=== PATIENT | male | born 1980 | race Caucasian/White ===

== ENCOUNTER 2016-12-10 20:45 | Outpatient (CLI) | payer BC ==
[~2016-12-10 20:45] MED LIST: CITA10TA70 PO; NAPR-243 PO
== END 2016-12-11 06:30 | disposition home or self-care (01) ==
LOC: SLEEP 20:45
PROVIDERS: ATTEND Nurse Practitioner Community Health
DX: G47.33 Obstructive sleep apnea (adult) (pediatric) (principal)
CPT/HCPCS: 95811

== ENCOUNTER 2022-09-27 13:22 | Emergency (ER) | payer OTHER ==
[~2022-09-27] VITALS: Ht 172 cm; Wt 136.1 kg
[2022-09-27 14:03] LABS: BASOPHILS # (AUTO) 0.1 10^3/uL (0.0-0.1); BASOPHILS % (AUTO) 0 % (0-10); EOSINOPHILS # (AUTO) 0.2 10^3/uL (0.0-0.3); EOSINOPHILS % (AUTO) 1 % (0-10); HEMATOCRIT 41 % (40-54); HEMOGLOBIN 14.5 g/dL (13.3-17.7); LYMPHOCYTES # (AUTO) 2.2 10^3/uL (1.0-4.0); LYMPHOCYTES % (AUTO) 19 % (12-44); MEAN CORPUSCULAR HEMOGLOBIN 32 pg (25-34); MEAN CORPUSCULAR HGB CONC 35 g/dL (32-36); MEAN CORPUSCULAR VOLUME 90 fL (80-99); MEAN PLATELET VOLUME 9.4 fL (9.0-12.2); MONOCYTES # (AUTO) 0.9 10^3/uL (0.0-1.0); MONOCYTES % (AUTO) 8 % (0-12); NEUTROPHILS # (AUTO) 8.5 10^3/uL (1.8-7.8); NEUTROPHILS % (AUTO) 72 % (42-75); PLATELET COUNT 282 10^3/uL (130-400); WHITE BLOOD COUNT 11.8 10^3/uL (4.3-11.0)
[2022-09-27 14:07] LABS: ALBUMIN 4.1 GM/DL (3.2-4.5)
[2022-09-27 14:08] LABS: POTASSIUM 3.4 MMOL/L (3.6-5.0)
[2022-09-27 14:09] LABS: CALCIUM 8.9 MG/DL (8.5-10.1)
[2022-09-27 14:10] LABS: TOTAL PROTEIN 7.3 GM/DL (6.4-8.2)
[2022-09-27 14:12] LABS: BILIRUBIN,TOTAL 0.5 MG/DL (0.1-1.0)
[2022-09-27 14:13] LABS: CREATININE SERUM 1.15 MG/DL (0.60-1.30)
--- NOTE | 2022-09-27 14:17 | ED GI ---
General Chief Complaint: Back Problems Stated Complaint: LOWER BACK PAIN | POSSIBLE KIDNEY STONE Nursing Triage Note: PT AMB TO [facility] 4 WITH C/O L FLANK PAIN SINCE 0200 THIS AM. PT THINKS ITS POSS A KIDNEY STONE. PT HAS HX OF KIDNEY STONES IN THE PAST Source of Information: Patient Exam Limitations: No Limitations (NOEMI TRINH APRN) History of Present Illness Date Seen by Provider: Sep 27, 2022 Time Seen by Provider: 13:58 Initial Comments 42-year-old male presents to the ER with complaints of left flank pain that radiates around abdomen to groin. He states the pain started at 2:30 AM last night when he got up to go to the restroom. He denies history of kidney stone diagnosis, but states he has had similar symptoms in the past. He reports nausea, no vomiting. Denies fevers, dysuria, hematuria. Last bowel movement was last night at 2:30 AM, states it was kind of loose. Denies any past medical history, does not take any medications regularly. (NOEMI TRINH APRN) Allergies and Home Medications Allergies Coded Allergies: No Known Drug Allergies (Unverified , 01/03/13) Patient Home Medication List Home Medication List Reviewed: Yes (NOEMI TRINH APRN) Citalopram Hydrobromide (Celexa) 10 Mg Tablet, 10 MG PO DAILY, (Reported) Entered as Reported by: BLAISE MERLOS on 01/03/13 1004 Naproxen (Naprosyn) 500 Mg Tablet, 1 EACH PO TID PRN Prescribed by: ETHEL HUMPHREY on 01/03/13 1122 Sulfamethoxazole/Trimethoprim (Bactrim Ds Tablet) 1 Each Tablet, 1 EACH PO BID Prescribed by: Noemi Trinh on 09/27/22 1541 Tamsulosin HCl (Flomax) 0.4 Mg Cap, 0.4 MG PO DAILY Prescribed by: Noemi Trinh on 09/27/22 1541 Review of Systems Review of Systems Constitutional: see HPI (NOEMI TRINH APRN) Past Hucixkg-Ccfkhq-Qadkgv Hx Patient Social History Tobacco Use?: No Smoking Status: Former Smoker Substance use?: Yes Substance type: Marijuana Substance frequency: Daily Alcohol Use?: No Pt feels they are or have been: No (NOEMI TRINH APRN) Immunizations Up To Date Tetanus Booster (TDap): Unknown (NOEMI TRINH APRN) Seasonal Allergies Seasonal Allergies: No (NOEMI TRINH APRN) Past Medical History Surgery/Hospitalization HX: DENIES Depression (NOEMI TRINH APRN) Physical Exam Vital Signs Vital Signs - First Documented 09/27/22 13:32 Temp 35.4 Pulse 65 Resp 17 B/P (MAP) 148/105 (119) Pulse Ox 99 O2 Delivery Room Air (BRYANT DIAL MD) Vital Signs Capillary Refill : (NOEMI TRINH APRN) Height/Weight/BMI Height: 5'8" Weight: 265lbs. oz. 120.567362ut; 46.00 BMI Method:Stated General Appearance: WD/WN, no apparent distress Neck: supple, normal inspection Respiratory: lungs clear, normal breath sounds, no respiratory distress, no accessory muscle use Cardiovascular: regular rate, rhythm Gastrointestinal: normal bowel sounds, non tender, soft Extremities: normal range of motion, normal inspection Back: normal inspection, no CVA tenderness Neurologic/Psychiatric: alert, normal mood/affect Skin: normal color, warm/dry (NOEMI TRINH APRN) Progress/Results/Core Measures Results/Orders Lab Results Laboratory Tests Test 09/27/22 13:38 09/27/22 14:34 Range/Units White Blood Count 11.8 H 4.3-11.0 10^3/uL Red Blood Count 4.60 4.30-5.52 10^6/uL Hemoglobin 14.5 13.3-17.7 g/dL Hematocrit 41 40-54 % Mean Corpuscular Volume 90 80-99 fL Mean Corpuscular Hemoglobin 32 25-34 pg Mean Corpuscular Hemoglobin Concent 35 32-36 g/dL Red Cell Distribution Width 12.2 10.0-14.5 % Platelet Count 282 130-400 10^3/uL Mean Platelet Volume 9.4 9.0-12.2 fL Immature Granulocyte % (Auto) 0 % Neutrophils (%) (Auto) 72 42-75 % Lymphocytes (%) (Auto) 19 12-44 % Monocytes (%) (Auto) 8 0-12 % Eosinophils (%) (Auto) 1 0-10 % Basophils (%) (Auto) 0 0-10 % Neutrophils # (Auto) 8.5 H 1.8-7.8 10^3/uL Lymphocytes # (Auto) 2.2 1.0-4.0 10^3/uL Monocytes # (Auto) 0.9 0.0-1.0 10^3/uL Eosinophils # (Auto) 0.2 0.0-0.3 10^3/uL Basophils # (Auto) 0.1 0.0-0.1 10^3/uL Immature Granulocyte # (Auto) 0.0 0.0-0.1 10^3/uL Sodium Level 138 135-145 MMOL/L Potassium Level 3.4 L 3.6-5.0 MMOL/L Chloride Level 104 98-107 MMOL/L Carbon Dioxide Level 25 21-32 MMOL/L Anion Gap 9 5-14 MMOL/L Blood Urea Nitrogen 15 7-18 MG/DL Creatinine 1.15 0.60-1.30 MG/DL Estimat Glomerular Filtration Rate 80 BUN/Creatinine Ratio 13 Glucose Level 86 70-105 MG/DL Calcium Level 8.9 8.5-10.1 MG/DL Corrected Calcium 8.8 8.5-10.1 MG/DL Total Bilirubin 0.5 0.1-1.0 MG/DL Aspartate Amino Transf (AST/SGOT) 32 5-34 U/L Alanine Aminotransferase (ALT/SGPT) 52 0-55 U/L Alkaline Phosphatase 74 40-136 U/L Total Protein 7.3 6.4-8.2 GM/DL Albumin 4.1 3.2-4.5 GM/DL Urine Color YELLOW Urine Clarity CLEAR Urine pH 6.0 5-9 Urine Specific [place] 1.020 1.016-1.022 Urine Protein NEGATIVE NEGATIVE Urine Glucose (UA) NEGATIVE NEGATIVE Urine Ketones NEGATIVE NEGATIVE Urine Nitrite NEGATIVE NEGATIVE Urine Bilirubin NEGATIVE NEGATIVE Urine Urobilinogen 0.2 < = 1.0 MG/DL Urine Leukocyte Esterase NEGATIVE NEGATIVE Urine RBC (Auto) 3+ H NEGATIVE Urine RBC 25-50 H /HPF Urine WBC RARE /HPF Urine Squamous Epithelial Cells RARE /HPF Urine Crystals NONE /LPF Urine Bacteria TRACE /HPF Urine Casts NONE /LPF Urine Mucus SMALL H /LPF Urine Culture Indicated NO (BRYANT DIAL MD) Vital Signs/I&O 09/27/22 09/27/22 13:32 16:00 Temp 35.4 35.4 Pulse 65 68 Resp 17 17 B/P (MAP) 148/105 (119) 158/66 Pulse Ox 99 96 O2 Delivery Room Air Room Air (BRYANT DIAL MD) Blood Pressure Mean: 119 Progress Progress Note : Progress Note Patient seen and evaluated, resting comfortably in bed, no acute distress. Based on exam and symptoms, differential diagnosis includes but is not limited to nephrolithiasis, pyelonephritis, musculoskeletal pain. Work-up initiated including CBC, CMP, UA, CT abdomen pelvis. IV fluids, Toradol, Zofran ordered. 1530 Labs reviewed. CBC shows slightly elevated WBC 11.8. CMP shows slightly decreased potassium 3.4. Urinalysis shows 3+ RBCs, negative for infection. CT shows 0.5 cm stone in left mid ureter. It also shows hepatic stenosis. Oral potassium ordered. Results discussed with patient. Will order a KUB to have if patient were to return for the same stone. Will discharge with Flomax, Bactrim, and urinary strainer and specimen cup. I offered narcotic pain medicine for patient. He states he does not want a prescription for it and he will take ibuprofen instead. Discharge instructions and return precautions provided. (NOEMI TRINH APRN) Diagnostic Imaging Diagonstic Imaging: CT Plain Films/CT/US/NM/MRI: abdomen Comments [facility]. [place], [place] NAME: CAMPBELL VILCHIS [facility] REC#: [id number] PT STATUS: REG ER : 1980 PHYSICIAN: NOEMI TRINH APRN ADMIT DATE: 09/27/22/ER Signed Date of Exam:09/27/22 CT ABD/PELVIS WO(KIDNEY STONE) EXAMINATION: CT abdomen and pelvis without contrast. TECHNIQUE: Multiple contiguous axial images were obtained through the abdomen and pelvis without the use of intravenous contrast. All CT scans use one or more of the following dose optimizing techniques: automated exposure control, MA and/or KvP adjustment based on patient size and exam type or iterative reconstruction. HISTORY: Left flank pain COMPARISON: None available. FINDINGS: Lung bases: Bibasilar dependent atelectasis. Solid organs: There is diffuse decreased attenuation of the liver which can be seen with hepatic steatosis. The gallbladder is normal. There is no biliary ductal dilation. Pancreas is normal. Spleen is normal. Adrenal glands are normal. There is mild left hydronephrosis likely secondary to a 0.5 cm stump in the mid left ureter. Bowel: The stomach and small bowel are normal without obstruction. The colon is normal. The appendix is normal. Peritoneum: There is no intraperitoneal free fluid or free air. No suspicious lymphadenopathy. Vasculature: Normal without aneurysm. Musculoskeletal: Degenerative changes of the spine without suspicious osseous lesion or compression fracture. Pelvis: The prostate gland is normal. The urinary bladder is normal. IMPRESSION: 1. A 0.5 cm calculus within the mid left ureter resulting in mild left hydronephrosis. 2. Hepatic steatosis. Dictated by: Dictated on workstation # [id number] Dict: 09/27/22 1434 Trans: 09/27/22 1527 [id number] [id number] Interpreted by: WADE BOJORQUEZ DO Electronically signed by: WADE BOJORQUEZ DO 09/27/22 1527 Diagonstic Imaging: Xray Plain Films/CT/US/NM/MRI: abdomen Comments [facility] [place] NAME: DENGCAMPBELL [facility] REC#: [id number] PT STATUS: DEP ER : 1980 PHYSICIAN: NOEMI TRINH APRN ADMIT DATE: 09/27/22/ER Signed Date of Exam:09/27/22 ABDOMEN/KUB 1VIEW INDICATION: Pain. COMPARISON: Exam correlated with CT abdomen and pelvis. FINDINGS: 4 mm calculus in the left ureter projects at the superior margin of the lateral aspect of the left L4 lumbar transverse process, unchanged from CT. No additional radiopaque stone. No bowel obstruction. There are right pelvic phleboliths noted incidentally. IMPRESSION: 4 mm left ureteral stone at the level of the fourth lumbar transverse process, unchanged when correlated with earlier CT. Dictated by: Dictated on workstation # [id number] Dict: 09/27/22 1548 Trans: 09/27/22 1612 AS6 [id number] Interpreted by: KATHIE CARABALLO Electronically signed by: KATHIE CARABALLO 09/27/22 1612 (NOEMI TRINH APRN) Departure Impression Primary Impression: Nephrolithiasis Disposition: 01 HOME, SELF-CARE Condition: Stable Departure-Patient Inst. Decision time for Depature: 15:37 (NOEMI TRINH APRN) Referrals: [facility] (PCP/Family) Primary Care Physician Patient Instructions: Kidney stones in adults Add. Discharge Instructions: Take Flomax once a day 30 minutes after eating. Take at the same time each day. Take Bactrim twice a day for 5 days. You may take 800 mg of ibuprofen every 8 hours with food as needed for pain. You may also take 1000 mg of Tylenol every 8 hours as needed for pain. Strain your urine and collect the stone. The stone can be taken to a urologist for testing. Follow-up with a urologist of your choice. Below are urologists in [place]. [address], [place] [address], [place] [address] All discharge instructions reviewed with patient and/or family. Voiced understanding. Scripts Tamsulosin HCl (Flomax) 0.4 Mg Cap 0.4 MG PO DAILY for 14 Days, #14 CAP 0 Refills Prov: NOEMI TRINH APRN 09/27/22 Sulfamethoxazole/Trimethoprim (Bactrim Ds Tablet) 1 Each Tablet 1 EACH PO BID for 5 Days, #10 TAB 0 Refills Prov: NOEMI TRINH APRN 09/27/22 Work/School Note: Work Release Form Date Seen in the Emergency Department: Sep 27, 2022 Return to Work: Oct 01, 2022 Restrictions: Return-No Fever (24hrs), Return-No Vomiting(24hrs) Other Restrictions Listed Below: May not be able to work if on sedating pain meds or in severe pain. ATTENDING PHYSICIAN NOTE: I was physically present as attending physician in the emergency department during the care of this patient, but I was not directly involved in the decision making or delivery of care for this patient. Work note was provided. (BRYANT DIAL MD) NOEMI TRINH APRN Sep 27, 2022 14:17 BRYANT DIAL MD Sep 29, 2022 07:47
[2022-09-27] MEDS ORDERED: NS IV 1000 ML 1,000 ML IV SCH (14:30)
[2022-09-27] MEDS ORDERED: ONDANSETRON 4 MG/2 ML (SDV) Z0FRAN IVP ONE (14:30)
[2022-09-27] MEDS ORDERED: KETOROLAC 15 MG/ML VIAL IVP ONE (14:30)
--- NOTE | 2022-09-27 14:38 | Diagnostic Imaging Report ---
EXAMINATION: CT abdomen and pelvis without contrast. TECHNIQUE: Multiple contiguous axial images were obtained through the abdomen and pelvis without the use of intravenous contrast. All CT scans use one or more of the following dose optimizing techniques: automated exposure control, MA and/or KvP adjustment based on patient size and exam type or iterative reconstruction. HISTORY: Left flank pain COMPARISON: None available. FINDINGS: Lung bases: Bibasilar dependent atelectasis. Solid organs: There is diffuse decreased attenuation of the liver which can be seen with hepatic steatosis. The gallbladder is normal. There is no biliary ductal dilation. Pancreas is normal. Spleen is normal. Adrenal glands are normal. There is mild left hydronephrosis likely secondary to a 0.5 cm stump in the mid left ureter. Bowel: The stomach and small bowel are normal without obstruction. The colon is normal. The appendix is normal. Peritoneum: There is no intraperitoneal free fluid or free air. No suspicious lymphadenopathy. Vasculature: Normal without aneurysm. Musculoskeletal: Degenerative changes of the spine without suspicious osseous lesion or compression fracture. Pelvis: The prostate gland is normal. The urinary bladder is normal. IMPRESSION: 1. A 0.5 cm calculus within the mid left ureter resulting in mild left hydronephrosis. 2. Hepatic steatosis. Dictated by: Dictated on workstation # [id number]
[2022-09-27 14:42] LABS: BILIRUBIN,URINE NEGATIVE (NEGATIVE); CLARITY,URINE CLEAR; COLOR,URINE YELLOW; GLUCOSE, URINE (UA) NEGATIVE (NEGATIVE); KETONES,URINE NEGATIVE (NEGATIVE); LEUKOCYTE ESTERASE ,URINE NEGATIVE (NEGATIVE); NITRITE,URINE NEGATIVE (NEGATIVE); PROTEIN,URINE NEGATIVE (NEGATIVE)
[2022-09-27 15:05] LABS: BACTERIA,URINE TRACE /HPF; RBC,URINE 25-50 /HPF; SQUAMOUS EPITHELIAL CELL,UR RARE /HPF; WBC,URINE RARE /HPF
[2022-09-27] MEDS ORDERED: SULF1TAB38 PO (15:41)
[2022-09-27] MEDS ORDERED: TMSL.4C PO (15:41)
--- NOTE | 2022-09-27 15:55 | Diagnostic Imaging Report ---
INDICATION: Pain. COMPARISON: Exam correlated with CT abdomen and pelvis. FINDINGS: 4 mm calculus in the left ureter projects at the superior margin of the lateral aspect of the left L4 lumbar transverse process, unchanged from CT. No additional radiopaque stone. No bowel obstruction. There are right pelvic phleboliths noted incidentally. IMPRESSION: 4 mm left ureteral stone at the level of the fourth lumbar transverse process, unchanged when correlated with earlier CT. Dictated by: Dictated on workstation # [id number]
[2022-09-27 16:00] VITALS: BP 158/66
== END 2022-09-27 16:10 | disposition home or self-care (01) ==
LOC: EDUNIT# 13:22 → ER 13:26
DX: N13.2 Hydronephrosis with renal and ureteral calculous obstruction (principal); K76.0 Fatty (change of) liver, not elsewhere classified; Z87.891 Personal history of nicotine dependence
CPT/HCPCS: 36415; 74018; 74176; 80053; 81000; 85025